=== PATIENT | female | born 1990 | race Caucasian/White ===

== ENCOUNTER 2017-02-08 21:22 | Inpatient (IN) | payer MEDICAID ==
--- NOTE | 2017-02-08 22:29 | C.PDOC ---
History Of Present Illness The patient presents to the ED requesting detox from oxycodone. Patient has already been prescreened. She denies suicidal/homicidal ideation and has no other physical complaints at this time. Time Seen by Provider: 02/08/17 22:26 Chief Complaint (Nursing): Substance Abuse History Per: Patient History/Exam Limitations: no limitations Onset/Duration Of Symptoms: Hrs Current Symptoms Are (Timing): Still Present Suicide/Self Injury Attempted (Context): None Modifying Factor(s): Other (oxycodone ) Severity: None Pain Scale Rating Of: 0 Associated Symptoms: denies: Suicidal Thoughts, Suicidal Plan Involuntary Hold By: None Recent travel outside of the [place]: No Additional History Per: Patient Past Medical History Reviewed: Historical Data, Nursing Documentation, Vital Signs Vital Signs: Last Vital Signs Temp 98.4 F 02/08/17 21:37 Pulse 80 02/08/17 21:37 Resp 18 02/08/17 21:37 BP 116/68 02/08/17 21:37 Pulse Ox 99 02/08/17 22:50 - Medical History PMH: No Chronic Diseases Surgical History: No Surg Hx Family History: States: Unknown Family Hx - Social History Hx Alcohol Use: No Hx Substance Use: Yes (oxycodone) - Immunization History Hx Tetanus Toxoid Vaccination: No Hx Influenza Vaccination: No Hx Pneumococcal Vaccination: No Review Of Systems Constitutional: Negative for: Fever, Chills Cardiovascular: Negative for: Chest Pain, Palpitations Respiratory: Negative for: Cough, Shortness of Breath Gastrointestinal: Negative for: Nausea, Vomiting Skin: Negative for: Rash, Lesions, Jaundice, Bruising Neurological: Negative for: Weakness, Numbness Psych: Positive for: Other (detox ). Negative for: Suicidal ideation Physical Exam - Physical Exam Appears: Non-toxic, No Acute Distress Skin: Warm, Dry Head: Normacephalic Eye(s): bilateral: Normal Inspection Oral Mucosa: Moist Neck: Supple Chest: Symmetrical, No Deformity, No Tenderness Cardiovascular: Rhythm Regular, No Murmur Respiratory: No Rales, No Rhonchi, No Wheezing Back: Normal Inspection Extremity: Normal ROM Extremity: Bilateral: Normal ROM Pulses: Left Dorsalis Pedis: Normal, Right Dorsalis Pedis: Normal Neurological/Psych: Oriented x3 Gait: Steady ED Course And Treatment - Laboratory Results Result Diagrams: 02/08/17 22:39 02/08/17 22:39 O2 Sat by Pulse Oximetry: 99 (on RA) Pulse Ox Interpretation: Normal Progress Note: Bloodwork and UA ordered. Disposition Discussed With Dr.: Thuan Fontanez Comment: accepted the pt on his service and took over the care at 12:19 AM Doctor Will See Patient In The: Hospital Counseled Patient/Family Regarding: Studies Performed, Diagnosis - Disposition Referrals: Non [facility] Provider, [Non-Staff] - Disposition: HOSPITALIZED Disposition Time: 22:29 Condition: FAIR Forms: [employer] (American) - POA Present On Arrival: None - Clinical Impression Clinical Impression: Drug abuse, Drug dependence - Scribe Statement The provider has reviewed the documentation as recorded by the Scribe (Cassy Barrientos) Provider Attestation: All medical record entries made by the Scribe were at my direction and personally dictated by me. I have reviewed the chart and agree that the record accurately reflects my personal performance of the history, physical exam, medical decision making, and the department course for this patient. I have also personally directed, reviewed, and agree with the discharge instructions and disposition. Decision To Admit - Pt Status Changed To: Hospital Disposition Of: Inpatient - Admit Certification Admit to Inpatient:: After my assessment, the patient will require hospitalization for at least two midnights. This is because of the severity of symptoms shown, intensity of services needed, and/or the medical risk in this patient being treated as an outpatient. - InPatient: Physician Admission Certification: I certify that this patient requires 2 or more midnights of care for the following reason:: After my assessment, the patient will require hospitalization for at least two midnights. This is because of the severity of symptoms shown, intensity of services needed, and/or the medical risk in this patient being treated as an outpatient. - . Bed Request Type: Detox Admitting Physician: Thuan Fontanez Patient Diagnosis: Drug abuse, Drug dependence
[2017-02-08 22:45] LABS: BASO % 0.3 % (0.0-2.0); EOS # 0.1 K/uL (0.0-0.7); EOS % 1.5 % (0.0-4.0); HEMATOCRIT 32.5 % (34.0-47.0); LYMPH # 2.4 K/uL (1.0-4.3); LYMPH % 30.5 % (20.0-40.0); MEAN CELL VOLUME 92.7 fL (81.0-99.0); MEAN CORPUSCULAR HEMOGLOBIN 31.5 pg (27.0-31.0); MEAN PLATELET VOLUME 8.4 fL (7.2-11.7); MONO # 0.6 K/uL (0.0-0.8); MONO % 7.2 % (0.0-10.0); RED CELL DISTRIBUTION WIDTH 12.9 % (11.5-14.5)
[2017-02-08 22:51] LABS: URINE BACTERIA OCC (<OCC); URINE BILIRUBIN NEGATIVE (NEGATIVE); URINE COLOR Yellow (YELLOW); URINE GLUCOSE (UA) NORMAL (Normal); URINE KETONE NEGATIVE (NEGATIVE); URINE LEUKOCYTE ESTERASE NEG Leu/uL (Negative); URINE PROTEIN NEGATIVE (NEGATIVE); WBC URINE 1 /hpf (0-5)
[2017-02-08 22:52] LABS: RBC URINE 4 /hpf (0-3); URINE BLOOD TRACE (NEGATIVE)
[2017-02-08 22:55] LABS: ALB/GLOB RATIO 1.4 (1.0-2.1); ALCOHOL SERUM < 10 mg/dl (0-10); ALKALINE PHOSPHATASE 38 U/L (38-126); ALT/SGPT 23 U/L (9-52); AST/SGOT 13 U/L (14-36); BILIRUBIN,TOTAL 0.3 mg/dL (0.2-1.3); BLOOD UREA NITROGEN 13 mg/dL (7-17); CALCIUM 8.1 mg/dl (8.6-10.4); CARBON DIOXIDE 30 mmol/L (22-30); CHLORIDE 104 mmol/L (98-107); GFR AFRICAN-AMERICAN > 60; GLUCOSE,RANDOM 89 mg/dL (65-105); POTASSIUM 3.6 mmol/L (3.6-5.2); SODIUM 140 mmol/L (132-148); TOTAL PROTEIN 6.5 g/dL (6.3-8.3)
--- NOTE | 2017-02-09 02:48 | PCM.BM ---
<Hannah Osorio - Last Filed: 02/09/17 02:47> Treatment Plan Problems - Problems identified on initial assessmt Opiate Dependence Date Initiated: 02/09/17 Time Initiated: 02:45 Assessment reference: NA Status: Active Treatment assets and liabiliti Patient Assests: ADL independent, good support system Patient Liabilities: substance abuse <Minna Nath - Last Filed: 02/10/17 11:48> Family Contact Family involvement: Famliy/SO not involved Family contact: Patient declines to allow family contact at present - Goals for Treatment Patient goals for treatment: Complete detox and then attend IOP with Vivitrol component. Discharge/Continuing Care - Education Needs Education Needs: Patient Medication, Patient Diagnosis/Disease Process, Patient Coping Skills, Patient Anger Management skills, Patient Placement options, Patient Community resources - Discharge Discharge Criteria: No longer exhibiting s/s of withdrawal, Reduction of target symptoms Discharge to:: With Family - Treatment Team Participation Patient/Family/SO Statement: 02/10/17 11:49 "I think I wanna try outpatient with Vivitrol." Discussed with Family/SO: No Was Patient/Family/SO present at Treatment Team Meeting: Yes <Gage Abdalla - Last Filed: 02/11/17 13:00> - Diagnosis (1) Opioid use disorder, severe, dependence Status: Acute Interventions: 02/11/17 13:00 * Assess 7x/week regarding severity of withdrawal * Educate regarding risks, benefits, side effects and alternatives of medications * Use Motivational Interviewing for abstinence * Use CBT for relapse prevention * Medication management for withdrawal symptoms * Encourage medication assisted treatment *
[2017-02-09] MEDS ORDERED: Aluminum Hydroxide/Magnesium Hydroxide Susp (30 mL) PO PRN (10:36)
--- NOTE | 2017-02-09 14:17 | PCM.PSYCH ---
Initial Psychiatric Evaluation - Initial Psychiatric Evaluation Type of Admission: Voluntary Legal Status: Capacity Chief Complaint (in patient's own words): "not well" History of Present Illness and Precipitating Events: The pt is seen, chart reviewed and case discussed She is a 26 yo WF, single, no child, attending college in [employer], lives with boyfriend She admits to using 150 mg Oxycodone a day x 1 year Denies other drugs or alcohol but uses xanax - various doses, no seizures No heroin This is her second detox She has anxiety issues Past psych hx: No admissions, suicide attempts Family psych hx: Mo had alcoholism, fa severe anxiety Medical hx: Denies Current Medications: Active Medications Generic Name Dose Route Start Last Admin Trade Name Freq PRN Reason Stop Dose Admin Al Hydrox/Mg Hydrox/Simethicone 30 ml 02/09/17 10:36 Maalox 30 Ml PO TID PRN Indigestion / Heartburn Clonidine HCl 0.1 mg 02/09/17 02:15 Catapres PO Q6 PRN withdrawal symptoms Escitalopram Oxalate 5 mg 02/09/17 10:45 02/09/17 11:21 Lexapro PO 5 mg DAILY JOHN Administration Gabapentin 300 mg 02/09/17 10:45 02/09/17 11:21 Neurontin PO 300 mg BID JOHN Administration Hydroxyzine HCl 50 mg 02/09/17 10:34 Atarax PO Q6 PRN Anxiety Ibuprofen 600 mg 02/09/17 10:33 Motrin Tab PO Q6H PRN Pain, moderate (4-7) Loperamide HCl 2 mg 02/09/17 10:36 Imodium PO Q8 PRN Diarrhea Nicotine 1 patch 02/09/17 10:00 02/09/17 09:37 Nicoderm Cq TD 1 patch DAILY JOHN Administration Ondansetron HCl 4 mg 02/09/17 10:36 Zofran Tab PO Q8 PRN Nausea/Vomiting Trazodone HCl 100 mg 02/09/17 22:00 Desyrel PO HS JOHN Past Psychiatric History - Past Psychiatric History Previous Treatment History: None Pertinent Medical Hx (Current Medical&Sleep Prob, Allergies): Allergies Allergy/AdvReac Type Severity Reaction Status Date / Time No Known Allergies Allergy Unverified 02/08/17 21:37 No Known Home Med 02/08/17 Review of Systems - Psychiatric Psychiatric: Abnormal Sleep Pattern, Anhedonia, Anxiety, Depression, Difficulty Concentrating. absent: Hallucinations, Homicidal Ideation, Paranoia, Suicidal Ideation Mental Status Examination - Personal Presentation Personal Presentation: Looks older than stated age - Affect Affect: Constricted - Motor Activity Motor Activity: Calm - Reliability in Providing Information Reliability in Providing Information: Good - Speech Speech: Organized - Mood Mood: Depressed, Anxious - Formal Thought Process Formal Thought Process: No Impairment - Cognitive Functions Orientation: Person, Place, Situation, Time Sensorium: Alert Attention/Concentration: Attentive Estimate of Intelligence: Average Judgement: Intact, as evidence by: Insight regarding need for hospitalization Memory: Recent intact, as evidence by: Ability to recall events of the day, Remote intact, as evidenced by: Abilit to recall sig. 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
[2017-02-09] MEDS ORDERED: Buprenorphine Hydrochloride 2 mg SL ONE ×2 (18:00→20:00)
[2017-02-10] MEDS: Buprenorphine Hydrochloride 2 mg SL SCH (09:21)
--- NOTE | 2017-02-10 11:28 | PCM.PYCHPN ---
Psychiatric Progress Note - Psychiatric Progress Note Patient seen today, length of contact: 16 min Patient Chief Complaint: "OK" Problems Identified/Issues Discussed: The pt is seen, chart reviewed, case discussed with staff. The pt is compliant with medications and reports no side-effects. Symptoms are improving but needs more time to stabilize. After care discussed, support and psychoeducation given. Medication Change: Yes Medical Record Reviewed: Yes Mental Status Examination - Cognitive Function Orientation: Person, Place, Situation, Time Memory: Intact Attention: WNL Concentration: WNL Association: WNL Fund of Knowledge: WNL - Mood Mood: Depressed, Anxious - Affect Affect: Constricted - Speech Speech: Appropriate - Formal Thought Process Formal Thought Process: No Impairment - Suicidal Ideation Suicidal Ideation: No - Homicidal Ideation Homicidal Ideation: No Goal/Treatment Plan - Goal/Treatment Plan Need for Continued Stay: Discharge may exacerbated symptoms, Severe functional impairment Progress Toward Problem(s) and Goals/Treatment Plan: Subutex detox As needed medications Gabapentin for augmentation Attend groups and activities Supportive therapy and psychoeducation [place] for abstinence CBT for relapse prevention Encourage MAT Refer to rehab or IOP Attend self-help groups as well Estimated Date of D/C: 02/13/18
[2017-02-11] MEDS: Buprenorphine Hydrochloride 2 mg SL SCH (09:51)
--- NOTE | 2017-02-11 12:59 | PCM.PYCHPN ---
Psychiatric Progress Note - Psychiatric Progress Note Patient seen today, length of contact: 15 min Patient Chief Complaint: "OK" Problems Identified/Issues Discussed: The pt is seen, chart reviewed, case discussed with staff. Support given, CBT and NM used briefly No new symptoms reported, improving slowly and needs more time No SEs from medications, risks discussed. After care discussed - will go to an IOP and consider MAT Medication Change: Yes Medical Record Reviewed: Yes Mental Status Examination - Cognitive Function Orientation: Person, Place, Situation, Time Memory: Intact Attention: WNL Concentration: WNL Association: WNL Fund of Knowledge: WNL - Mood Mood: Depressed, Anxious - Affect Affect: Constricted - Speech Speech: Appropriate - Formal Thought Process Formal Thought Process: No Impairment - Suicidal Ideation Suicidal Ideation: No - Homicidal Ideation Homicidal Ideation: No Goal/Treatment Plan - Goal/Treatment Plan Need for Continued Stay: Discharge may exacerbated symptoms, Severe functional impairment Progress Toward Problem(s) and Goals/Treatment Plan: Subutex detox As needed medications Gabapentin for augmentation Attend groups and activities Supportive therapy and psychoeducation [place] for abstinence CBT for relapse prevention Encourage MAT Refer to rehab or IOP Attend self-help groups as well Estimated Date of D/C: 02/13/18
--- NOTE | 2017-02-12 09:26 | PCM.PYCHPN ---
Psychiatric Progress Note - Psychiatric Progress Note Patient seen today, length of contact: 15 min Medication Change: Yes Medical Record Reviewed: Yes Mental Status Examination - Cognitive Function Orientation: Person, Place, Situation, Time Memory: Intact Attention: WNL Concentration: WNL Association: WNL Fund of Knowledge: WNL - Mood Mood: Depressed, Anxious - Affect Affect: Constricted - Speech Speech: Appropriate - Formal Thought Process Formal Thought Process: No Impairment - Suicidal Ideation Suicidal Ideation: No - Homicidal Ideation Homicidal Ideation: No Goal/Treatment Plan - Goal/Treatment Plan Need for Continued Stay: Discharge may exacerbated symptoms, Severe functional impairment Progress Toward Problem(s) and Goals/Treatment Plan: Subutex detox As needed medications Gabapentin for augmentation Attend groups and activities Supportive therapy and psychoeducation [place] for abstinence CBT for relapse prevention Encourage MAT Refer to rehab or IOP Attend self-help groups as well Estimated Date of D/C: 02/13/18 - Smoking Cessation Smoking Cessation Initiated: No
[2017-02-12] MEDS: Buprenorphine Hydrochloride 2 mg SL SCH (09:40)
[2017-02-13 06:34] VITALS: RESP 18
[2017-02-13 08:53] VITALS: BP 100/61; PULSE 67; TEMP 98; O2SAT 98
[2017-02-13] MEDS: Buprenorphine Hydrochloride 2 mg SL SCH (09:16)
--- NOTE | 2017-02-13 19:31 | PCM.PYCHDC ---
Mental Status Examination - Mental Status Examination Orientation: Person, Place, Situation, Time Memory: Intact Mood: Neutral Affect: Other (Appropriate) Speech: Appropriate Attention: WNL Concentration: WNL Association: WNL Fund of Knowledge: WNL Formal Thought Process: No Impairment Description of patient's judgement and insight: Fair Psychotic Thoughts and Behaviors: None Suicidal Ideation: No Current Homicidal Ideation?: No Discharge Summary - Discharge Note Reason for Hospitalization: Opioids and anxiolytic use Laboratory Data: Reviewed Consultations:: List each consultation separately and include: 1. Reason for request. 2. Findings. 3. Follow-up Summary of Hospital Course include:: 1. Description of specific treatment plan utilized for patients during their course of treatmen. 2. Summarize the time- course for resolution of acute symptoms and/or regressed behaviors. 3. Describe issues identified and worked on during hospitalization. 4. Describe medication utilized. 5. Describe medical problems identified and treated. 6. Reassessment of suicide risk Summary of Hospital Course: The pt is seen, chart reviewed and case discussed She is a 26 yo WF, single, no child, attending college in [employer], lives with boyfriend She admits to using 150 mg Oxycodone a day x 1 year Denies other drugs or alcohol but uses xanax - various doses, no seizures No heroin This is her second detox She has anxiety issues Past psych hx: No admissions, suicide attempts Family psych hx: Mo had alcoholism, fa severe anxiety Medical hx: Denies During her stay in the hospital patient was treated with Subutex, other as needed medications. With above treatment patient started feeling better and today patient was ready for discharge from the hospital. At the time of evaluation and discharge, patient was awake, alert and oriented 3. Patient was stable, had no withdrawal symptoms. Patient had no delusions, no auditory or visual hallucinations, no suicidal ideations or homicidal ideations at the time of her evaluation. Again patient was discharged in a stable condition. Patient will go to stable community services for follow-up care after discharge from the hospital. - Final Diagnosis (DSM 5) Condition upon Discharge: FAIR Disposition: HOME/ ROUTINE Prescriptions/Medication Reconciliation: Escitalopram [Lexapro] 10 mg PO DAILY #30 tab Gabapentin [Neurontin] 300 mg PO BID #60 cap traZODone [Desyrel] 100 mg PO HS #30 tab - Smoking Cessation Smoking Cessation Medication prescribed: Yes - Antipsychotic Medications Pt discharged on 2 or more routine antipsychotic medications: No
== END 2017-02-13 10:15 | disposition home or self-care (01) | DRG 745 ==
LOC: C.ER 21:22 → SUPCPDRO 21:22 → C.7D 02-09 00:18
PROC: HZ2ZZZZ Detoxification Services for Substance Abuse Treatment (ICD-10-PCS; principal; 2017-02-09)
PROC: HZ52ZZZ Individual Psychotherapy for Substance Abuse Treatment, Cognitive-Behavioral (ICD-10-PCS; 2017-02-09)
PROC: HZ42ZZZ Group Counseling for Substance Abuse Treatment, Cognitive-Behavioral (ICD-10-PCS; 2017-02-09)
PROC: HZ59ZZZ Individual Psychotherapy for Substance Abuse Treatment, Supportive (ICD-10-PCS; 2017-02-09)
PROC: HZ56ZZZ Individual Psychotherapy for Substance Abuse Treatment, Psychoeducation (ICD-10-PCS; 2017-02-09)
PROC: HZ46ZZZ Group Counseling for Substance Abuse Treatment, Psychoeducation (ICD-10-PCS; 2017-02-09)
DX: F11.23 Opioid dependence with withdrawal (principal); F13.10 Sedative, hypnotic or anxiolytic abuse, uncomplicated

== ENCOUNTER 2018-06-13 11:26 | Inpatient (IN) | payer MEDICAID ==
[2018-06-13 12:15] LABS: BASO % 0.5 % (0.0-2.0); EOS # 0.1 K/uL (0.0-0.7); EOS % 1.4 % (0.0-4.0); HEMOGLOBIN 11.2 g/dL (11.0-16.0); LYMPH # 1.1 K/uL (1.0-4.3); LYMPH % 21.8 % (20.0-40.0); MEAN CORPUSCULAR HEMOGLOBIN 30.9 pg (27.0-31.0); MEAN CORPUSCULAR HGB CONC 34.4 g/dL (33.0-37.0); MEAN PLATELET VOLUME 8.5 fL (7.2-11.7); MONO # 0.3 K/uL (0.0-0.8); MONO % 5.6 % (0.0-10.0); NEUT # 3.6 K/uL (1.8-7.0); NEUT % 70.7 % (50.0-75.0); NRBC % 0.1 % (0.0-2.0); RBC 3.64 Mil/uL (3.80-5.20); RED CELL DISTRIBUTION WIDTH 13.2 % (11.5-14.5); WHITE BLOOD COUNT 5.1 K/uL (4.8-10.8)
--- NOTE | 2018-06-13 12:17 | C.PDOC ---
History Of Present Illness 28 y/o female presents to the ER requesting detox from heroin. Patient states that she last used heroin yesterday. Patient came for detox in [facility] about 2 years ago. Denies having suicidal ideation, homicidal ideation, and active physical complaints. Of note, patient is prescreened. Time Seen by Provider: 06/13/18 11:47 Chief Complaint (Nursing): Substance Abuse History Per: Patient History/Exam Limitations: no limitations Past Medical History Reviewed: Historical Data, Nursing Documentation, Vital Signs Vital Signs: Last Vital Signs Temp 98.4 F 06/13/18 11:38 Pulse 81 06/13/18 11:38 Resp 18 06/13/18 11:38 BP 117/69 06/13/18 11:38 Pulse Ox 96 06/13/18 11:38 - Medical History PMH: Anxiety, Depression Denies: Diabetes, Hepatitis, HIV, HTN, Seizures, Sexually Transmitted Disease Surgical History: No Surg Hx - [facility] Procedures DETOXIFICATION SERVICES FOR SUBSTANCE ABUSE TREATMENT (02/09/17) GROUP MEDICAL STAFF COORDINATOR FOR SUBSTANCE ABUSE TREATMENT, PSYCHOEDUCATION (02/09/17) GROUP MEDICAL STAFF COORDINATOR FOR SUBSTANCE ABUSE, COGNITIVE BEHAVIORAL (02/09/17) INDIV PSYCHOTHERAPY FOR SUBSTANCE ABUSE TREATMENT, SUPPORT (02/09/17) INDIV PSYCHOTHERAPY FOR SUBSTANCE ABUSE, COGNITIV BEHAVIORAL (02/09/17) INDIV PSYCHOTHERAPY FOR SUBSTANCE ABUSE, PSYCHOEDUCATION (02/09/17) Family History: States: No Known Family Hx - Social History Hx Alcohol Use: No Hx Substance Use: Yes (heroin) - Immunization History Hx Tetanus Toxoid Vaccination: No Hx Influenza Vaccination: No Hx Pneumococcal Vaccination: No Review Of Systems Except As Marked, All Systems Reviewed And Found Negative. Constitutional: Negative for: Fever, Chills Psych: Negative for: Suicidal ideation Physical Exam - Physical Exam Appears: No Acute Distress Skin: Normal Color, Warm, Dry Head: Atraumatic, Normacephalic Eye(s): bilateral: Normal Inspection Nose: Normal Oral Mucosa: Moist Neck: Supple Chest: Symmetrical Cardiovascular: Rhythm Regular Respiratory: Normal Breath Sounds, No Rales, No Rhonchi, No Wheezing Gastrointestinal/Abdominal: Normal Exam, Soft, No Tenderness, No Guarding, No Rebound Neurological/Psych: Oriented x3, Normal Speech ED Course And Treatment - Laboratory Results Result Diagrams: 06/13/18 12:06/13/18 12:04 Lab Interpretation: Normal O2 Sat by Pulse Oximetry: 96 (RA) Pulse Ox Interpretation: Normal Progress Note: Case discussed and patient evaluated by plugger worker who request admission to detox Reassessment Condition: Improved - Physician Consult Information Physician Contacted: Gage Abdalla Outcome Of Conversation: admit Medical Decision Making Medical Decision Making: Plan: --Labs --UA --CRISIS Disposition Discussed With Dr.: Gage Abdalla Doctor Will See Patient In The: Hospital - Disposition Disposition: HOSPITALIZED Disposition Time: 14:00 Condition: STABLE Forms: [facility] (Wolof) - POA Present On Arrival: None - Clinical Impression Clinical Impression: Drug dependence, Drug abuse - PA / DISPLAY TRIMMER / Resident Statement MD/DO has reviewed & agrees with the documentation as recorded. - Scribe Statement The provider has reviewed the documentation as recorded by the Saraibe Iona Morales Provider Attestation All medical record entries made by the Scribe were at my direction and personally dictated by me. I have reviewed the chart and agree that the record accurately reflects my personal performance of the history, physical exam, medical decision making, and the department course for this patient. I have also personally directed, reviewed, and agree with the discharge instructions and disposition. Decision To Admit - Pt Status Changed To: Hospital Disposition Of: Inpatient - Admit Certification Admit to Inpatient:: After my assessment, the patient will require hospitalization for at least two midnights. This is because of the severity of symptoms shown, intensity of services needed, and/or the medical risk in this patient being treated as an outpatient. - InPatient: Physician Admission Certification: I certify that this patient requires 2 or more midnights of care for the following reason:: Opioid abuse - . Bed Request Type: Detox Admitting Physician: Gage Abdalla Patient Diagnosis: Drug abuse
[2018-06-13 12:28] LABS: SQUAMOUS EPITHIAL 7 /hpf (0-5); URINE BACTERIA MOD (<OCC); URINE BILIRUBIN NEGATIVE (NEGATIVE); URINE BLOOD 1+ (NEGATIVE); URINE CLARITY Hazy (Clear); URINE COLOR Amber (YELLOW); URINE GLUCOSE (UA) NORMAL (Normal); URINE LEUKOCYTE ESTERASE TRACE Leu/uL (Negative); URINE PROTEIN 1+ mg/dL (NEGATIVE); URINE UROBILINOGEN NORMAL mg/dL (0.2-1.0)
[2018-06-13 12:29] LABS: HCG,QUALITATIVE URINE NEGATIVE (NEGATIVE)
[2018-06-13 12:37] LABS: ALB/GLOB RATIO 1.5 (1.0-2.1); ALBUMIN 4.2 g/dL (3.5-5.0); AST/SGOT 20 U/L (14-36); BLOOD UREA NITROGEN 11 mg/dL (7-17); CALCIUM 9.2 mg/dl (8.6-10.4); GFR NON-AFRICAN AMERICAN > 60
[2018-06-13 12:38] LABS: ALT/SGPT < 6 U/L (9-52)
[2018-06-13 13:16] LABS: BARBITURATES, UR NEGATIVE (NEGATIVE); BENZODIAZEPINES, UR NEGATIVE (NEGATIVE); PHENCYCLIDINE, UR NEGATIVE (NEGATIVE)
[2018-06-13 13:19] LABS: OPIATES, UR POSITIVE (NEGATIVE)
--- NOTE | 2018-06-13 14:44 | PCM.BM ---
Treatment Plan Problems - Problems identified on initial assessmt defensive coping Date Initiated: 06/13/18 Time Initiated: 14:43 Assessment reference: NA Status: Active denial Date Initiated: 06/13/18 Time Initiated: 14:43 Assessment reference: NA Status: Active chronic low self esteem Date Initiated: 06/13/18 Time Initiated: 14:44 Assessment reference: NA Status: Active Treatment assets and liabiliti Patient Assests: ADL independent, good support system Patient Liabilities: substance abuse - Milieu Protocol Maintain good personal hygiene: daily Encourage regular showers, daily Remind patient to perform daily oral care, daily Assist patient to perform ADL's Conduct patient checks and document Observation sheet: Q15 minutes Maintain personal safety: every shift Educate patient to report safety concerns to staff, every shift Monitor environment for contraband/sharps Medication safety: Monitor for expected outcome, potential side effects: every shift, Assess barriers to learning: every shift, Assess readiness for medication education: every shift
[2018-06-13] MEDS ORDERED: Aluminum Hydroxide/Magnesium Hydroxide Susp (30 mL) PO PRN (16:46)
--- NOTE | 2018-06-14 10:24 | PCM.PSYCH ---
Initial Psychiatric Evaluation - Initial Psychiatric Evaluation Type of Admission: Voluntary Legal Status: Capacity History of Present Illness and Precipitating Events: Patient is seen, chart reviewed and plan discussed with team. Patient is a 28 YO female, currently single with a six year old child. She lives at home with a friend. She is currently not working, past job was working at [employer]. Patient presented to detox for heroin use. She currently uses 15 bags/day sniffing. She has been using heroin for the past year and oxycodone 2 years prior. Her longest sobriety was nine months last august. She has been to detox facilities three times, her most recent was at [facility] on February 2017. She has been getting vivitrol injections until last August, expressed that her cravings for heroin were highest while on it. She currently does not report any withdrawal symptoms. Patient denied other recreational drug use. She stated feeling more anxious when not using drugs. She reports her mood to be depressed and withdrawn. Upon discharge she would like to go home, expressed interest in outpatient rehab facility. Psych Hx Depression and anxiety Fam Psych HX Denies Medications Denies PMHx Denies Trauma Denies Current Medications: Active Medications Generic Name Dose Route Start Last Admin Trade Name Freq PRN Reason Stop Dose Admin Al Hydrox/Mg Hydrox/Simethicone 30 ml 06/13/18 16:46 Maalox 30 Ml PO TID PRN Indigestion / Heartburn Clonidine HCl 0.1 mg 06/13/18 16:46 Catapres PO Q4 PRN COWS Score More or Equal to 5 Hydroxyzine HCl 50 mg 06/13/18 16:47 06/13/18 21:00 Atarax PO 50 mg Q6H PRN Administration Anxiety Ibuprofen 600 mg 06/13/18 16:46 Motrin Tab PO Q6 PRN Pain, moderate (4-7) Loperamide HCl 2 mg 06/13/18 16:46 Imodium PO Q8 PRN Diarrhea Mirtazapine 15 mg 06/13/18 22:00 06/13/18 21:00 Remeron PO 15 mg HS JOHN Administration Ondansetron HCl 4 mg 06/13/18 16:46 Zofran Tab PO Q8 PRN Nausea/Vomiting Trazodone HCl 100 mg 06/13/18 16:47 06/13/18 21:00 Desyrel PO 100 mg HS PRN Administration Insomnia Past Psychiatric History - Past Psychiatric History Pertinent Medical Hx (Current Medical&Sleep Prob, Allergies): Allergies Allergy/AdvReac Type Severity Reaction Status Date / Time lithium Allergy Intermediate Verified 06/13/18 11:43 No Known Home Med 06/13/18
[2018-06-14 10:57] VITALS: RESP 18
[2018-06-14 16:33] VITALS: BP 108/73; PULSE 98; TEMP 99.2; O2SAT 96
== END 2018-06-14 17:17 | disposition left against medical advice (07) | DRG 770 ==
LOC: C.ER 11:26 → C.7D 14:26
PROVIDERS: ADMIT Psychiatry & Neurology Psychiatry; ATTEND Psychiatry & Neurology Psychiatry
DX: F11.20 Opioid dependence, uncomplicated (principal)